=== PATIENT | female | born 1965 | race Caucasian/White ===

== ENCOUNTER 2021-11-10 21:00 | Observation (INO) | payer MEDICARE ==
[2021-11-10 22:17] LABS: Basophils % (A) 0 %; Eosinophils # (A) 0.2 k/uL (0-0.7); Eosinophils % (A) 1 %; HCT 40.3 % (34.0-46.0); HGB 13.1 gm/dL (11.4-16.0); Lymphocytes # (A) 2.4 k/uL (1.0-4.8); Lymphocytes % (A) 17 %; MCH 28.3 pg (25.0-35.0); MCHC 32.5 g/dL (31.0-37.0); MCV 86.9 fL (80.0-100.0); Mean Platelet Volume 7.8; Monocytes % (A) 7 %; Neutrophils # (A) 10.2 k/uL (1.3-7.7); Neutrophils % (A) 72 %; Platelet Count 384 k/uL (150-450); RBC 4.64 m/uL (3.80-5.40); RDW 13.8 % (11.5-15.5); WBC 14.2 k/uL (3.8-10.6)
[2021-11-10 22:27] LABS: ALT 20 U/L (4-34); AST 24 U/L (14-36); African American GFR (CKD) >90 (>60 ml/min/1.73 sqM); Albumin 4.5 g/dL (3.5-5.0); Alkaline Phosphatase 78 U/L (38-126); Anion Gap 10 mmol/L; Blood Urea Nitrogen 19 mg/dL (7-17); Carbon Dioxide 24 mmol/L (22-30); Chloride 98 mmol/L (98-107); Glucose 156 mg/dL (74-99); Magnesium 1.3 mg/dL (1.6-2.3); Non-African American GFR(CKD) >90 (>60 ml/min/1.73 sqM); Potassium 5.3 mmol/L (3.5-5.1); Prothrombin Time 10.9 sec (9.0-12.0); Sodium 132 mmol/L (137-145); Total Bilirubin 0.7 mg/dL (0.2-1.3); Total Protein 7.2 g/dL (6.3-8.2)
--- NOTE | 2021-11-10 22:43 | XR ---
EXAMINATION TYPE: XR chest 2V DATE OF EXAM: 11/10/2021 COMPARISON: 3 views HISTORY: Left-sided chest pain TECHNIQUE: 2 views FINDINGS: Heart is normal. There is right axillary pacemaker. Lungs are clear of consolidation. No he art failure seen. No evidence of pleural effusion. There is poor inspiration. Bony thorax is intact. IMPRESSION: Poor inspiration. No acute lung disease. No heart failure.
[2021-11-11] MEDS ORDERED: ONDANSETRON 4 MG/2 ML VIAL IVP PRN (01:46)
[2021-11-11] MEDS ORDERED: MAGNESIUM OXIDE 400 MG TAB PO STA (01:46)
[2021-11-11] MEDS ORDERED: NALOXONE 0.4 MG/ML 1 ML VIAL IV PRN (01:46)
[2021-11-11] MEDS ORDERED: LORazepam 2 MG/ML INJ IV PRN (01:46)
[2021-11-11] MEDS ORDERED: MORPHINE SULFATE 4 MG/ML SYRINGE IV PRN (01:46)
[2021-11-11] MEDS ORDERED: MORPHINE SULFATE 4 MG/ML SYRINGE IVP STA (01:51)
[2021-11-11] MEDS ORDERED: LORazepam 2 MG/ML INJ IV STA (01:51)
--- NOTE | 2021-11-11 01:53 | ED ---
Chest Pain HPI - General Chief Complaint: Chest Pain Stated Complaint: ALEJANDRA,Chest pain Time Seen by Provider: 11/11/21 01:13 Source: patient Mode of arrival: ambulatory Limitations: no limitations - Related Data Allergies Allergy/AdvReac Type Severity Reaction Status Date / Time DIRK Inhibitors Allergy Unknown Verified 11/10/21 21:19 Review of Systems ROS Statement: Those systems with pertinent positive or pertinent negative responses have been documented in the HPI. ROS Other: All systems not noted in ROS Statement are negative. Past Medical History Past Medical History: Atrial Fibrillation, Diabetes Mellitus History of Any Multi-Drug Resistant Organisms: None Reported Past Surgical History: Adenoidectomy, Tonsillectomy Additional Past Surgical History / Comment(s): knee replacement x 2 ,. Defibrillator. Past Psychological History: Depression Smoking Status: Never smoker Past Alcohol Use History: None Reported Past Drug Use History: None Reported General Exam Limitations: no limitations Course Vital Signs 11/10/21 21:12 Temperature 97.2 F L Pulse Rate 81 Respiratory 16 Rate Blood Pressure 122/64 O2 Sat by Pulse 96 Oximetry Disposition Clinical Impression: Atypical chest pain, Chest pain, Hyperkalemia, Hypomagnesemia Disposition: ADMITTED IP TO THIS HOSP Condition: Undetermined Is patient prescribed a controlled substance at d/c from ED?: No Referrals: Suzi Schroeder MD [Primary Care Provider] - 1-2 days
[2021-11-11] MEDS ORDERED: SODIUM CHLORIDE 0.9% 1,000 ML IV SCH (02:00)
--- NOTE | 2021-11-11 02:34 | XR ---
EXAM: XR Left Hip With Pelvis When Performed, 2 or 3 Views CLINICAL HISTORY: Pain. TECHNIQUE: Two or three views of the left hip with pelvis when performed. COMPARISON: No relevant prior studies available. FINDINGS: Bones/joints: Unremarkable. No acute fracture. No dislocation. Soft tissues: Unremarkable. IMPRESSION: No acute findings.
--- NOTE | 2021-11-11 04:45 | P.HPIM ---
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 The patient reports that her symptoms started earlier today at around 3 PM, with pressure-like left-sided chest discomfort, nonradiating, with associated shortness of breath and nausea. She reports that her symptoms had resolved at the time of interview. Denied experiencing palpitations, diaphoresis, vomiting, fever, chills, cough. EKG in the emergency room revealed sinus rhythm at 85 bpm with T-wave flattening in all precordial leads diffusely. Chest x-ray was unremarkable. Laboratory values was remarkable for WBC count of 14.2, potassium 5.3, magnesium 1.3, and troponin less than 0.012. Review of systems: Pertinent positives and negatives as discussed in HPI, a complete review of systems was performed and all other systems are negative. Physical examination: General: non toxic, no distress, appears older than stated age, morbidly obese Derm: no unusual rashes/lesions, warm Head: atraumatic, normocephalic, symmetric Eyes: EOMI, no lid lag, anicteric sclera, pupils equal round reactive to light ENT: Nose and ears atraumatic Neck: No cervical lymphadenopathy, trachea midline, supple Mouth: no lip lesion, mucus membranes moist Cardiovascular: S1S2 reg, no murmur, positive dorsalis pedis pulse bilateral, no edema Lungs: CTA bilateral, no rhonchi, no rales, no accessory muscle use Abdominal: soft, nontender to palpation, no guarding Ext: muscle strength 5 out of 5 in all 4 extremities grossly, no gross muscle atrophy, no contractures, Neuro: CN II-XI grossly intact, no gross focal neuro deficits Psych: Alert, oriented, appropriate affect Assessment/plan Chest pain, rule out ACS -Cardiac monitoring -Cardiology consult -Trend troponin -Continue with aspirin and statin Chronic conditions: A. fib, type II DM -Continue with home meds -Insulin sliding scale and blood glucose monitoring DVT prophylaxis -Eliquis The patient is admitted with an anticipated less than 2 midnight stay for evaluation of chest pain CODE STATUS: Full Code Discussed with: Patient Anticipated discharge date: in am Anticipated discharge place: Home Past Medical History Past Medical History: Atrial Fibrillation, Diabetes Mellitus History of Any Multi-Drug Resistant Organisms: None Reported Past Surgical History: Adenoidectomy, Tonsillectomy Additional Past Surgical History / Comment(s): knee replacement x 2 , Defibrillator. Past Psychological History: Anxiety, Depression Smoking Status: Never smoker Past Alcohol Use History: None Reported Past Drug Use History: None Reported - Past Family History Mother Family Medical History: Cancer Medications and Allergies Allergies Allergy/AdvReac Type Severity Reaction Status Date / Time DIRK Inhibitors Allergy Unknown Verified 11/10/21 21:19 Physical Exam Vitals: Vital Signs Temp Pulse Pulse Resp BP BP Pulse Ox 11/11/21 03:37 97.6 F 62 20 120/59 95 11/11/21 02:17 75 114/69 11/10/21 21:12 97.2 F L 81 16 122/64 96 Intake and Output 11/10/21 11/10/21 11/11/21 14:59 22:59 06:59 Other: Weight 104.326 kg 104.326 kg Results CBC & Chem 7: 11/10/21 22:00 11/10/21 22:00 Labs: Abnormal Lab Results - Last 24 Hours (Table) 11/10/21 11/10/21 Range/Units 22:00 22:00 WBC 14.2 H (3.8-10.6) k/uL Neutrophils # 10.2 H (1.3-7.7) k/uL Sodium 132 L (137-145) mmol/L Potassium 5.3 H (3.5-5.1) mmol/L BUN 19 H (7-17) mg/dL Glucose 156 H (74-99) mg/dL Magnesium 1.3 L (1.6-2.3) mg/dL
[2021-11-11] MEDS ORDERED: ATORVASTATIN 80 MG TAB PO STA (04:50)
[2021-11-11] MEDS ORDERED: ASPIRIN 325 MG TAB PO STA (04:50)
[2021-11-11 07:27] VITALS: RESP 18
[2021-11-11 07:28] LABS: Glucose,Whole Blood 153 mg/dL (70-110)
[2021-11-11] MEDS ORDERED: MAGNESIUM OXIDE 400 MG TAB PO SCH (09:00)
[2021-11-11] MEDS ORDERED: PANTOPRAZOLE 40 MG/10 ML VIAL IV SCH (09:00)
[2021-11-11] MEDS: INSULIN ASPART (NovoLOG) 100 UNIT/ML VIAL SQ SCH ×3 (09:04→17:23)
[2021-11-11 09:05] LABS: HCT 35.6 % (34.0-46.0); HGB 11.4 gm/dL (11.4-16.0); Hypochromasia Slight; MCH 28.5 pg (25.0-35.0); MCHC 32.1 g/dL (31.0-37.0); MCV 88.7 fL (80.0-100.0); Mean Platelet Volume 8.4; Platelet Count 303 k/uL (150-450); RBC 4.01 m/uL (3.80-5.40); RDW 13.6 % (11.5-15.5); WBC 10.7 k/uL (3.8-10.6)
[2021-11-11 09:13] LABS: ALT 16 U/L (4-34); AST 27 U/L (14-36); African American GFR (CKD) 53 (>60 ml/min/1.73 sqM); Albumin 3.6 g/dL (3.5-5.0); Albumin/Globulin Ratio 1.5; Alkaline Phosphatase 63 U/L (38-126); Anion Gap 12 mmol/L; Blood Urea Nitrogen 24 mg/dL (7-17); Calcium 9.1 mg/dL (8.4-10.2); Carbon Dioxide 22 mmol/L (22-30); Chloride 96 mmol/L (98-107); Globulin 2.4 g/dL; Glucose 138 mg/dL (74-99); Magnesium 1.4 mg/dL (1.6-2.3); Non-African American GFR(CKD) 46 (>60 ml/min/1.73 sqM); Potassium 4.9 mmol/L (3.5-5.1); Sodium 130 mmol/L (137-145); Total Bilirubin 0.3 mg/dL (0.2-1.3)
[2021-11-11] MEDS: MAGNESIUM SULFATE-D5W PMX 1 GM in DEXTROSE/WATER 1 100ML.BAG IVPB SCH ×3 (11:04→14:39)
[2021-11-11] MEDS ORDERED: ALPRAZolam 0.25 MG TAB PO PRN (11:13)
[2021-11-11] MEDS ORDERED: APIXABAN 5 MG TAB PO SCH (11:15)
[2021-11-11] MEDS ORDERED: buPROPion SR 150 MG TABLET.ER PO SCH (11:15)
[2021-11-11] MEDS ORDERED: Brexpiprazole [Rexulti] PO SCH (11:15)
[2021-11-11] MEDS ORDERED: SOTALOL 80 MG TAB PO SCH (11:15)
--- NOTE | 2021-11-11 11:17 | P.PN ---
Subjective Progress Note Date: 11/11/21 Hospital course: Patient is a Physical exam: Vital signs reviewed and stable. General: Nontoxic, no distress and appears stated age. Derm: Skin warm and dry, normal coloration for ethnicity. Head: Atraumatic, normocephalic and symmetric. Eyes: EOMs intact, no lid lag, and anicteric sclera Mouth: no lip lesions, mucus membranes moist Cardiovascular: regular rate and rhythm with normal S1S2, no murmur, positive posterior tibial pulses bilaterally, and cap refill < 2 seconds. Lungs: Respirations even, regular, and unlabored on room air. Lungs CTA bilaterally, no rhonchi, no rales, no wheezing, and no accessory muscle usage. Abdominal: soft, nontender to palpation, no guarding, no appreciable organomegaly Ext: ROM intact. No gross muscle atrophy, no edema, no contractures Neuro: Speech clear, face symmetrical and CN II-XII grossly intact with no noted focal neuro deficits Psych: Alert and oriented to person, place, time, and situation. Appropriate and pleasant affect. Assessment and Plan of Care: CODE STATUS:[] DVT prophylaxis: [] Discussed with: [] Anticipated discharge date: [] Anticipated discharge place: [] A total of [] minutes was spent on the care of this complex patient more than 50% of the time was spent in counseling and care coordination. Objective - Vital Signs Vital signs: Vital Signs Temp 97.6 F 11/11/21 07:00 Pulse 69 11/11/21 07:00 Resp 18 11/11/21 07:00 BP 106/52 11/11/21 07:00 Pulse Ox 94 L 11/11/21 07:00 FiO2 Intake & Output 11/10/21 11/11/21 11/11/21 18:59 06:59 18:59 Weight 104.326 kg Other: # Voids 2 - Labs CBC & Chem 7: 11/11/21 06:43 11/11/21 06:43 Labs: Abnormal Lab Results - Last 24 Hours (Table) 11/10/21 11/10/21 11/11/21 Range/Units 22:00 22:00 06:43 WBC 14.2 H 10.7 H (3.8-10.6) k/uL Neutrophils # 10.2 H (1.3-7.7) k/uL Sodium 132 L (137-145) mmol/L Potassium 5.3 H (3.5-5.1) mmol/L Chloride (98-107) mmol/L BUN 19 H (7-17) mg/dL Creatinine (0.52-1.04) mg/dL Glucose 156 H (74-99) mg/dL POC Glucose (mg/dL) (70-110) mg/dL Magnesium 1.3 L (1.6-2.3) mg/dL Total Protein (6.3-8.2) g/dL 11/11/21 11/11/21 Range/Units 06:43 07:25 WBC (3.8-10.6) k/uL Neutrophils # (1.3-7.7) k/uL Sodium 130 L (137-145) mmol/L Potassium (3.5-5.1) mmol/L Chloride 96 L (98-107) mmol/L BUN 24 H (7-17) mg/dL Creatinine 1.30 H (0.52-1.04) mg/dL Glucose 138 H (74-99) mg/dL POC Glucose (mg/dL) 153 H (70-110) mg/dL Magnesium 1.4 L (1.6-2.3) mg/dL Total Protein 6.0 L (6.3-8.2) g/dL
[2021-11-11 11:47] LABS: Glucose,Whole Blood 256 mg/dL (70-110)
--- NOTE | 2021-11-11 11:55 | P.CRDCN ---
History of Present Illness History of present illness: HISTORY OF PRESENTING ILLNESS This is a pleasant 56-year-old female past medical history significant for coronary artery disease, atrial fibrillation on Eliquis, type 2 diabetes, cardiomyopathy s/p AICD Implantation. She follows with a swift tender in [place], Dr. Fitch. Her primary care provider is also in [place]. We have been asked to see in consultation for chest pain. Patient presented to the emergency department with complaints of chest pain and shortness of breath yesterday. Her pain is located on the left side of her chest, non-radiating, non-exertional. She did feel some shortness of breath. No specific alleviating or aggravating factors. Lasted for about 1 hour. She denies tobacco use. She states she wanted to come to [place] instead of seeing her swift tender in [place]. DIAGNOSTICS EKG reveals sinus rhythm, heart rate 85, LVH, nonspecific ST-T wave abnormalities, mild ST depression in lead I. No prior EKG to compare Telemetry tracings indicate sinus mechanism with heart rate in the 60s70s Chest xray no acute cardiopulmonary process. Laboratory reviewed, troponin negative 3, WBC 14.2, hemoglobin 13.1, platelets 384, , potassium 5.3, BUN 19, serum creatinine 0.74, repeat is 1.3, magnesium 1.3, repeat 1.4 Current home medications include Coreg 25 mg twice a day, sotalol 160 mg twice a day, atorvastatin 10 mg nightly, Eliquis 5 mg twice a day, Requip, metformin, hydroxyzine, Wellbutrin, Seroquel, there,, Protonix, Zofran, Claritin, flimepiride, Diflucan, Rexulti, Xanax. REVIEW OF SYSTEMS At the time of my exam: CONSTITUTIONAL: Denies fever or chills. CARDIOVASCULAR: + chest pain, Denies shortness of breath, orthopnea, PND or palpitations. RESPIRATORY: Denies cough. GASTROINTESTINAL: Denies abdominal pain, diarrhea, constipation, nausea or vomiting. MUSCULOSKELETAL: Denies myalgias. NEUROLOGIC: Denies numbness, tingling, headache or weakness. ENDOCRINE: Denies fatigue, weight change, polydipsia or polyurina. GENITOURINARY: Denies burning, hematuria or urgency with micturation. HEMATOLOGIC: Denies history of anemia or bleeding. PHYSICAL EXAMINATION Blood pressure 106/52, HR 69, afebrile, SpO2 >92% on room air CONSTITUTIONAL: No apparent distress. HEENT: Head is normocephalic. Pupils are equal, round. Sclerae anicteric. Mucous membranes of the mouth are moist. No JVD. No carotid bruit. CHEST EXAMINATION: Lungs are clear to auscultation. No chest wall tenderness is noted on palpation or with deep breathing. HEART EXAMINATION: Regular rate and rhythm. S1, S2 heard. No murmurs, gallops or rub. ABDOMEN: Soft, nontender. Positive bowel sounds. EXTREMITIES: 2+ peripheral pulses, no lower extremity edema and no calf t enderness. SKIN: warm, dry NEUROLOGIC EXAMINATION: Patient is awake, alert and oriented x3. ASSESSMENT Chest pain, acute coronary syndrome has ruled out Acute kidney injury Hyperkalemia Hypomagnesemia History of coronary artery disease Paroxysmal atrial fibrillation on Eliquis Type 2 diabetes Cardiomyopathy unknown if ischemic vs non-ischemic s/p previous AICD implantation PLAN An acute coronary event has been ruled out with no EKG evidence of ischemia and negative cardiac enzymes. Patient's pain does not appear to be cardiac in etiology. Acute coronary syndrome has been ruled out. Recommend continuing current cardiac medications and follow up with her swift tender Dr. Fitch as scheduled. We will follow the patient as needed. Discharge per medicine. Please reach out with any further questions or concerns. Thank you kindly for this consultation. Nurse practitioner note has been reviewed by physician. Signing provider agrees with the documented findings, assessment, and plan of care. Past Medical History Past Medical History: Atrial Fibrillation, Diabetes Mellitus History of Any Multi-Drug Resistant Organisms: None Reported Past Surgical History: Adenoidectomy, Tonsillectomy Additional Past Surgical History / Comment(s): knee replacement x 2 , Defibril lator. Past Psychological History: Anxiety, Depression Smoking Status: Never smoker Past Alcohol Use History: None Reported Past Drug Use History: None Reported - Past Family History Mother Family Medical History: Cancer Medications and Allergies Home Medications Medication Instructions Recorded Confirmed Type ALPRAZolam [Xanax] 0.25 mg PO TID PRN 11/11/21 11/11/21 History Apixaban [Eliquis] 5 mg PO BID 11/11/21 11/11/21 History Atorvastatin [Lipitor] 10 mg PO HS 11/11/21 11/11/21 History Brexpiprazole [Rexulti] 0.5 mg PO DAILY 11/11/21 11/11/21 History Clotrimazole/Betameth Cream 1 applic TOPICAL BID 11/11/21 11/11/21 History [Lotrisone] Exenatide Microspheres [Bydureon 2 mg SQ TU 11/11/21 11/11/21 History Bcise Auto-Injector] Fluconazole [Diflucan] 150 mg PO Q72H 11/11/21 11/11/21 History Glimepiride [Amaryl] 4 mg PO BID 11/11/21 11/11/21 History Loratadine [Claritin] 10 mg PO DAILY 11/11/21 11/11/21 History Nitroglycerin Sl Tabs [Nitrostat] 0.4 mg SUBLINGUAL Q5M PRN 11/11/21 11/11/21 History Ondansetron Odt [Zofran Odt] 4 mg PO Q8H PRN 11/11/21 11/11/21 History Pantoprazole [Protonix] 40 mg PO DAILY 11/11/21 11/11/21 History Pregabalin [Lyrica] 75 mg PO BID 11/11/21 11/11/21 History QUEtiapine [SEROquel] 100 mg PO HS 11/11/21 11/11/21 History Sotalol HCl [Sotalol] 160 mg PO BID 11/11/21 11/11/21 History buPROPion SR [Wellbutrin SR] 150 mg PO BID 11/11/21 11/11/21 History carvediloL [Coreg] 25 mg PO BID 11/11/21 11/11/21 History hydrOXYzine pamoate [Vistaril] 25 mg PO TID 11/11/21 11/11/21 History metFORMIN HCL [Glucophage] 850 mg PO TID 11/11/21 11/11/21 History rOPINIRole HCL [Requip] 0.5 mg PO TID 11/11/21 11/11/21 History Allergies Allergy/AdvReac Type Severity Reaction Status Date / Time DIRK Inhibitors Allergy Unknown Verified 11/11/21 08:14 Physical Exam Vitals: Vital Signs Temp Pulse Pulse Resp BP BP Pulse Ox 11/11/21 07:00 97.6 F 69 18 106/52 94 L 11/11/21 03:37 97.6 F 62 20 120/59 95 11/11/21 02:17 75 114/69 11/10/21 21:12 97.2 F L 81 16 122/64 96 Intake and Output 11/10/21 11/11/21 11/11/21 22:59 06:59 14:59 Other: # Voids 2 Weight 104.326 kg 104.326 kg Results 11/11/21 06:43 11/11/21 06:43 Cardiac Enzymes 11/10/21 11/10/21 11/11/21 Range/Units 22:00 22:00 02:31 AST 24 (14-36) U/L Troponin I <0.012 <0.012 (0.000-0.034) ng/mL 11/11/21 11/11/21 Range/Units 06:43 06:43 AST 27 (14-36) U/L Troponin I <0.012 (0.000-0.034) ng/mL Coagulation 11/10/21 Range/Units 22:00 PT 10.9 (9.0-12.0) sec APTT 24.0 (22.0-30.0) sec CBC 11/10/21 11/11/21 Range/Units 22:00 06:43 WBC 14.2 H 10.7 H (3.8-10.6) k/uL RBC 4.64 4.01 (3.80-5.40) m/uL Hgb 13.1 11.4 (11.4-16.0) gm/dL Hct 40.3 35.6 (34.0-46.0) % Plt Count 384 303 (150-450) k/uL Comprehensive Metabolic Panel 11/10/21 11/11/21 Range/Units 22:00 06:43 Sodium 132 L 130 L (137-145) mmol/L Potassium 5.3 H 4.9 (3.5-5.1) mmol/L Chloride 98 96 L (98-107) mmol/L Carbon Dioxide 24 22 (22-30) mmol/L BUN 19 H 24 H (7-17) mg/dL Creatinine 0.74 1.30 H (0.52-1.04) mg/dL Glucose 156 H 138 H (74-99) mg/dL Calcium 10.0 9.1 (8.4-10.2) mg/dL AST 24 27 (14-36) U/L ALT 20 16 (4-34) U/L Alkaline Phosphatase 78 63 (38-126) U/L Total Protein 7.2 6.0 L (6.3-8.2) g/dL Albumin 4.5 3.6 (3.5-5.0) g/dL Current Medications Generic Name Dose Route Start Last Admin Trade Name Freq PRN Reason Stop Dose Admin Aspirin 81 mg 11/12/21 09:00 Aspirin 81 Mg PO DAILY [facility] Sodium Chloride 1,000 mls @ 20 mls/hr 11/11/21 02:00 11/11/21 04:12 Saline 0.9% IV Not Given .Q24H [facility] Magnesium Sulfate/Dextrose 1 100 mls @ 100 mls/hr 11/11/21 10:30 gm/ IV Solution IVPB 11/11/21 13:29 Q1H [facility] Insulin Aspart 0 unit 11/11/21 07:30 11/11/21 09:04 Insulin Aspart (Novolog) 100 Unit/Ml Vial SQ Not Given ACHS [facility] Protocol Lorazepam 0.5 mg 11/11/21 01:46 Lorazepam 2 Mg/Ml Inj IV Q6HR PRN Anxiety Magnesium Oxide 400 mg 11/11/21 09:00 11/11/21 09:00 Magnesium Oxide 400 Mg Tab PO 400 mg BID [facility] Administration Morphine Sulfate 4 mg 11/11/21 01:46 Morphine Sulfate 4 Mg/Ml Syringe IV Q4HR PRN Severe Pain Naloxone HCl 0.2 mg 11/11/21 01:46 Naloxone 0.4 Mg/Ml 1 Ml Vial IV Q2M PRN Opioid Reversal Ondansetron HCl 4 mg 11/11/21 01:46 Ondansetron 4 Mg/2 Ml Vial IVP Q8HR PRN Nausea And Vomiting Pantoprazole Sodium 40 mg 11/11/21 09:00 11/11/21 09:00 Pantoprazole 40 Mg/10 Ml Vial IV 40 mg DAILY [facility] Administration Intake and Output 11/10/21 11/11/21 11/11/21 22:59 06:59 14:59 Other: # Voids 2 Weight 104.326 kg 104.326 kg 11/11/21 06:43 11/11/21 06:43
[2021-11-11] MEDS ORDERED: LORazepam 0.5 MG TAB PO PRN (12:17)
[2021-11-11] MEDS: hydrOXYzine pamoate 25 MG CAP PO SCH ×2 (12:36→17:08)
[2021-11-11 13:57] VITALS: BP 133/71; PULSE 70; TEMP 98.1
--- NOTE | 2021-11-11 14:24 | P.DS ---
Providers Date of admission: 11/11/21 01:46 Expected date of discharge: 11/11/21 Attending physician: Elena Coto MD Consults: 11/11/21 10:16 Consult Physician Urgent Consulting Provider: Michael Cortez Consult Reason/Comments: chest pain, cardiac history Do you want consulting provider notified?: Yes Primary care physician: Suzi Schroeder MD Hospital Course: Discharge Diagnosis: Chest pain, acute coronary event has been ruled out Hypomagnesemia, replaced. Patient being discharged home on oral Mag-Ox 400 mg twice a day along with lab prescription to have repeat labs drawn in 3 days to monitor for resolution/improvement with these results to be sent to PCP for follow-up and management. Hyponatremia, likely secondary to dehydration and a decreased oral intake. Patient educated on the importance of staying hydrated by drinking 6-8 glasses of water daily and avoid caffeinated beverages. Hyperkalemia, resolved Acute kidney injury. BUN 24, creatinine 1.30, and GFR 46. Believed to be secondary to dehydration resulting from patient's decreased oral intake. Patient educated on importance of staying hydrated by drinking 6-8 glasses of water daily and to avoid caffeinated beverages. Patient also being discharged with a lab prescription to have repeat labs drawn in 3 days to monitor for resolution/improvement with these results to be sent to her PCP for follow-up and management. History of coronary artery disease with cardiomyopathy status post AICD Hypertension, monitor vital signs and continue daily medication regimen with carvedilol Hyperlipidemia, continue daily medication regimen with atorvastatin Type II [id number] diabetes mellitus, continue home medication regimen with glimepiride and metformin Anxiety and depression, continue to follow up outpatient with psychiatrist for medication management and continue daily medication regimen with Seroquel, Rexalti, Wellbutrin, Lyrica, and as needed hydroxyzine for anxiety Hospital Course: Patient is a very pleasant 56-year-old female with a past medical history significant for coronary artery disease, atrial fibrillation on anticoagulation with Eliquis, cardiomyopathy status post AICD implantation, type II [id number] diabetes mellitus, anxiety, and depression.she presented to the emergency department overnight with a chief complaint of chest pain and shortness of breath. She reported this pain as a pressure-like sensation to left anterior chest that was accompanied by mild shortness of breath. Patient denied having any headache, lightheadedness, dizziness, palpitations, nausea, vomiting, diaphoresis, or experiencing any numbness/tingling/weakness in her extremities. Patient did report having pain in her left hip as well. Patient follows with mold burner in [place] and has an appointment scheduled for later this afternoon. She stated that she came out to our facility because she wanted to have a second opinion by different providers. Patient underwent full evaluation in the emergency department. EKG revealed normal sinus rhythm at 85 bpm with diffuse flattening of T waves. Chest x-ray negative for acute cardiopulmonary process.CBC revealed mild leukocytosis with WBC count of 14.2, hyponatremia with sodium 132, and hyperkalemia with potassium of 5.3. Magnesium was 1.3. Troponin negative at less than 0.012. Patient admitted under our services with consultation to cardiology. Troponins trended all negative at less than 0.0123 draws. Patient was evaluated by cardiology. Morning labs revealing improvement of leukocytosis with WBC count decreasing to 10.7. hyponatremia remains with sodium of 1:30, hyperkalemia resolved with potassium of 4.9. Magnesium was 1.4. Order placed for 3 g to be given 1 dose. Renal function slightly elevated with BUN 24, creatinine 1.30, and GFR 46. This is believed to be secondary to dehydration. Patient educated on the importance of staying hydrated by drinking 6-8 glasses of water daily and to avoid caffeinated beverages. Acute coronary syndrome was ruled out, cardiology recommending patient follow up outpatient with her primary mold burner as scheduled later today. Patient reporting chest pain is likely due to her anxiety because she has been very anxious and is out of Xanax. Patient requesting Xanax prescription on discharge and she was informed that Xanax will not be provided and that she may continue hydroxyzine 25 mg 3 times daily as needed for anxiety and follow-up with her PCP and/or psychiatrist as needed for further prescriptions of controlled substances. Patient medically stable for discharge home at this time. Patient to follow up with her primary mold burner as previously schedul ed and with her PCP in 1-2 days. Physical examination: Patient seen and examined at bedside. Vital signs reviewed and stable. overweight. General: Nontoxic, no distress and appears stated age. Derm: Skin warm and dry, normal coloration for ethnicity. Head: Atraumatic, normocephalic and symmetric. Eyes: EOMs intact, no lid lag, and anicteric sclera Mouth: no lip lesions, mucus membranes moist Cardiovascular: regular rate and rhythm with normal S1S2, no murmur, positive posterior tibial pulses bilaterally, and cap refill < 2 seconds. Lungs: Respirations even, regular, and unlabored on room air. Lungs CTA bilaterally, no rhonchi, no rales, no wheezing, and no accessory muscle usage. Abdominal: soft, nontender to palpation, no guarding, no appreciable organomegaly Ext: ROM intact. No gross muscle atrophy, no edema, no contractures Neuro: Speech clear, face symmetrical and CN II-XII grossly intact with no noted focal neuro deficits Psych: Alert and oriented to person, place, time, and situation. Appropriate and pleasant affect. A total of 38 minutes of time were spent preparing this complex discharge summary. Pt was discharged on 11/11/21 at 2:22 PM. Patient Condition at Discharge: Stable Plan - Discharge Summary New Discharge Prescriptions: New Magnesium Oxide [Mag-Ox] 400 mg PO BID 30 Days #60 tab Continue QUEtiapine [SEROquel] 100 mg PO HS Brexpiprazole [Rexulti] 0.5 mg PO DAILY metFORMIN HCL [Glucophage] 850 mg PO TID Pantoprazole [Protonix] 40 mg PO DAILY Nitroglycerin Sl Tabs [Nitrostat] 0.4 mg SUBLINGUAL Q5M PRN PRN Reason: Chest Pain Loratadine [Claritin] 10 mg PO DAILY Fluconazole [Diflucan] 150 mg PO Q72H carvediloL [Coreg] 25 mg PO BID Exenatide Microspheres [Bydureon Bcise Auto-Injector] 2 mg SQ TU Clotrimazole/Betameth Cream [Lotrisone] 1 applic TOPICAL BID Apixaban [Eliquis] 5 mg PO BID buPROPion SR [Wellbutrin SR] 150 mg PO BID ALPRAZolam [Xanax] 0.25 mg PO TID PRN PRN Reason: Anxiety rOPINIRole HCL [Requip] 0.5 mg PO TID Pregabalin [Lyrica] 75 mg PO BID Ondansetron Odt [Zofran ODT] 4 mg PO Q8H PRN PRN Reason: Nausea hydrOXYzine pamoate [Vistaril] 25 mg PO TID Glimepiride [Amaryl] 4 mg PO BID Atorvastatin [Lipitor] 10 mg PO HS Sotalol HCl [Sotalol] 160 mg PO BID Discharge Medication List ALPRAZolam [Xanax] 0.25 mg PO TID PRN 11/11/21 [History] Apixaban [Eliquis] 5 mg PO BID 11/11/21 [History] Atorvastatin [Lipitor] 10 mg PO HS 11/11/21 [History] Brexpiprazole [Rexulti] 0.5 mg PO DAILY 11/11/21 [History] Clotrimazole/Betameth Cream [Lotrisone] 1 applic TOPICAL BID 11/11/21 [History] Exenatide Microspheres [Bydureon Bcise Auto-Injector] 2 mg SQ TU 11/11/21 [History] Fluconazole [Diflucan] 150 mg PO Q72H 11/11/21 [History] Glimepiride [Amaryl] 4 mg PO BID 11/11/21 [History] Loratadine [Claritin] 10 mg PO DAILY 11/11/21 [History] Magnesium Oxide [Mag-Ox] 400 mg PO BID 30 Days #60 tab 11/11/21 [Rx] Nitroglycerin Sl Tabs [Nitrostat] 0.4 mg SUBLINGUAL Q5M PRN 11/11/21 [History] Ondansetron Odt [Zofran ODT] 4 mg PO Q8H PRN 11/11/21 [History] Pantoprazole [Protonix] 40 mg PO DAILY 11/11/21 [History] Pregabalin [Lyrica] 75 mg PO BID 11/11/21 [History] QUEtiapine [SEROquel] 100 mg PO HS 11/11/21 [History] Sotalol HCl [Sotalol] 160 mg PO BID 11/11/21 [History] buPROPion SR [Wellbutrin SR] 150 mg PO BID 11/11/21 [History] carvediloL [Coreg] 25 mg PO BID 11/11/21 [History] hydrOXYzine pamoate [Vistaril] 25 mg PO TID 11/11/21 [History] metFORMIN HCL [Glucophage] 850 mg PO TID 11/11/21 [History] rOPINIRole HCL [Requip] 0.5 mg PO TID 11/11/21 [History] Follow up Appointment(s)/Referral(s): Suzi Schroeder MD [Primary Care Provider] - 1-2 days Ambulatory/Diagnostic Orders: Comprehensive Metabolic Panel [LAB.AMB] Time Frame: 3 Days, Location: None Selected Magnesium [LAB.AMB] Time Frame: 3 Days, Location: None Selected Activity/Diet/Wound Care/Special Instructions: Activity: As tolerated. Take breaks as needed. Diet: Heart healthy and carb consistent diet. Avoid salts, or foods with hidden salts such as canned or boxed foods and frozen dinners. Extra salt makes your heart work harder and traps the fluid in your body for longer. Special Instructions: Take all of your medications as directed and remember to keep all of your doctor's appointments and follow-up as needed. Please follow-up as scheduled with her primary mold burner at [facility]. Your renal function was mildly elevated, highly recommend staying hydrated with 6-8 glasses of water daily. You will also need to follow up outpatient for repeat labs to monitor your renal function. These results will be sent to your primary care doctor for follow-up and management. Your magnesium was low and was replaced in the hospital. You are being discharged home with prescription for magnesium oxide supplements, please take these twice daily as directed. In addition he will need to have your magnesium levels checked in 3 days to follow-up on previously abnormal labs status post replacement. These results will also be sent to your primary care doctor for follow-up and management. Thank you for allowing us to participate in your care, it was truly a pleasure having you for our patient!!! Discharge Disposition: HOME SELF-CARE
[2021-11-11] MEDS: carvediloL 12.5 MG TAB PO SCH ×2 (14:39→17:22)
[2021-11-11 17:16] LABS: Glucose,Whole Blood 207 mg/dL (70-110)
[2021-11-11] MEDS ORDERED: ATORVASTATIN 10 MG TAB PO SCH (21:00)
[2021-11-11] MEDS ORDERED: QUEtiapine 100 MG TAB PO SCH (21:00)
[2021-11-11] MEDS ORDERED: PREGABALIN 75 MG CAP PO SCH (21:00)
[2021-11-12] MEDS ORDERED: PANTOPRAZOLE 40 MG TABLET PO SCH (07:30)
[2021-11-12] MEDS ORDERED: LORATADINE 10 MG TAB PO SCH (09:00)
[2021-11-12] MEDS ORDERED: ASPIRIN 81 MG PO SCH (09:00)
== END 2021-11-11 17:39 | disposition home or self-care (01) ==
LOC: EC 21:00 → 6NMEDSUR 11-11 01:46
PROVIDERS: ADMIT Internal Medicine; ATTEND Internal Medicine
DX: R07.89 Other chest pain (principal); N17.9 Acute kidney failure, unspecified; E87.5 Hyperkalemia; E83.42 Hypomagnesemia; D72.829 Elevated white blood cell count, unspecified; E87.1 Hypo-osmolality and hyponatremia; E86.0 Dehydration; E11.9 Type 2 diabetes mellitus without complications; I48.0 Paroxysmal atrial fibrillation; I42.9 Cardiomyopathy, unspecified; I25.10 Atherosclerotic heart disease of native coronary artery without angina pectoris; I10 Essential (primary) hypertension; E78.5 Hyperlipidemia, unspecified; M25.552 Pain in left hip; F32.A Depression, unspecified; F41.9 Anxiety disorder, unspecified; E66.01 Morbid (severe) obesity due to excess calories; Z68.41 Body mass index [BMI] 40.0-44.9, adult; Z79.01 Long term (current) use of anticoagulants; Z79.84 Long term (current) use of oral hypoglycemic drugs; Z79.899 Other long term (current) drug therapy; Z88.8 Allergy status to other drugs, medicaments and biological substances; Z95.810 Presence of automatic (implantable) cardiac defibrillator; Z96.659 Presence of unspecified artificial knee joint; Z98.890 Other specified postprocedural states; Z80.9 Family history of malignant neoplasm, unspecified
CPT/HCPCS: 96365; 96366; 96375 ×2; 99285; 36415; 93005; 80053 ×2; 83735 ×2; 84484 ×2; 85025; 85027; 85610; 85730; 73502; 71046; G0378; J2060; J2270; S0106; J3475; C9113